=== PATIENT | male | born 1965 | race Hispanic/Latino ===

== ENCOUNTER 2020-12-05 06:38 | Emergency (ER) | payer SELFPAY ==
--- NOTE | ~2020-12-05 | CT_ITS ---
EXAMINATION: CT brain wo con DATE: 12/05/2020 08:43 INDICATION: Head injury. TECHNIQUE: Computed tomography (CT) of the head was performed without intravenous contrast. The mA wa s adjusted according to patient size. Iterative reconstruction technique was employed. The dose-lengt h product was 605.33 mGy-cm. COMPARISON: None FINDINGS: There is no intracranial hemorrhage, acute infarction, or abnormal intracranial mass lesion . There are scattered areas of low attenuation in the cerebral white matter. The ventricles are ponce l in size. There is mild mucosal thickening in the paranasal sinuses. The mastoid air cells are ponce l. There is left periorbital soft tissue swelling. The orbits are normal. IMPRESSION: 1. Mild nonspecific cerebral white matter disease, which likely represents chronic small vessel ische vanessa disease. Reviewed, dictated and finalized at location A. IMPRESSION: 1. 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
[2020-12-05 06:47] VITALS: BP 126/88; PULSE 77; RESP 15; TEMP 36.4; O2SAT 96
--- NOTE | 2020-12-05 07:04 | ECG_ITS ---
Measurements Intervals [place] Rate: 72 P: 52 OR: 165 QRS: 41 QRSD: 89 T: 69 QT: 374 QTc: 410 Interpretive Statements SINUS RHYTHM NORMAL ECG Electronically Signed On 12-05-2020 7:40:05 CDT by Tristen Denney D.O.
--- NOTE | 2020-12-05 08:58 | ED.FALL ---
HPI - Fall General Chief Complaint: Fall Stated Complaint: fall Time Seen by Provider: 12/05/20 08:11 History of Present Illness HPI Narrative: Patient presents after falling at work. Patient reports he slipped on the wet floor. Denies any loss of consciousness reports his whole body hurts. Reports he has a laceration to his left eye. Denies any prodrome prior to the fall such as chest pain lightheadedness or dizziness. Denies any focal numbness or weakness. Denies the use of any blood thinners Review of Systems Review of Systems: CONSTITUTIONAL: Denies fever, chills, or sweats. EYES: Denies visual changes, redness, or discharge. ENT: Denies rhinorrhea, congestion, sore throat, or otalgia. CARDIOVASCULAR: Denies chest pain, palpitations, or edema. RESPIRATORY: Denies cough or dyspnea. GASTROINTESTINAL: Denies abdominal pain, nausea, vomiting, or diarrhea. GENITOURINARY: Denies dysuria or hematuria. SKIN: Denies rash or itching. MUSCULOSKELETAL: Denies back pain, joint pain, or myalgia. NEUROLOGIC: Denies numbness, dizziness, or weakness. PSYCHIATRIC: Denies anxiety or depression. All systems reviewed & are unremarkable except as noted in HPI and below Exam Narrative: GENERAL: Well-appearing, well-nourished, and in no acute distress. HEAD: Superficial abrasion around the left orbit no active bleeding there is associated edema and small ecchymosis EYES: PERRLA and EOMI without pain. ENT: Nares clear, no rhinorrhea or epistaxis. Mucous membranes moist. NECK: Supple. No masses. No JVD CHEST: Clear to auscultation. No respiratory distress. No wheezes rales or rhonchi HEART: Regular rate and rhythm. No murmur heard. Normal peripheral pulses. ABDOMEN: Soft, nontender, nondistended, normal active bowel sounds. EXTREMITIES: Normal range of motion. No edema. SKIN: Warm, dry, no rash. NEURO: No focal deficits. Alert and oriented x3. PSYCH: Normal mood and affect. Course Reevaluation(s) Reevaluation #1: Patient continues to rest comfortably requesting some ointment for his eye. Continues to be without focal neurological deficits Date: 12/05/20 Time: 13:02 Vital Signs Vital signs: Vital Signs Temperature 36.4 C 12/05/20 06:47 Pulse Rate 77 12/05/20 06:47 Respiratory Rate 15 12/05/20 06:47 Blood Pressure 126/88 12/05/20 06:47 Pulse Oximetry 96 12/05/20 06:47 Temperature 36.4 C 12/05/20 06:47 Pulse Rate 77 12/05/20 06:47 Respiratory Rate 15 12/05/20 06:47 Blood Pressure 126/88 12/05/20 06:47 Pulse Oximetry 96 12/05/20 06:47 MDM - Fall MDM Narrative Medical decision making narrative: H&P as above, vss, pt looks clinically well, exam with superficial injury to the left eye no focal neurological deficits, labs notable for elevated alcohol level, img without acute process, additional labs/img considered, symptomatic relief available as needed, on reevaluation pt continues to looks clinically well. Suspect mechanical ground-level fall related to alcohol intoxication, dns intracranial hemorrhage, ACS, PE, electrolyte disturbance. plan to tx/monitor as op w/ pcm f/u findings/plan discussed with pt, pt agree/comfortable with plan, return precautions given Lab Data Result diagrams: 12/05/20 09:00 12/05/20 09:00 Labs: Lab Results 12/05/20 12/05/20 12/05/20 Range/Units 09:00 09:00 09:00 WBC 3.1 L (4.5-10.0) K/mm3 RBC 3.19 L (4.6-6.20) M/mm3 Hgb 11.9 L (14.0-18.0) g/dL Hct 32.8 L (42.0-52.0) % MCV 102.8 H (80-100) fl MCH 37.3 H (26-34) pg MCHC 36.3 H (32-36) g/dl RDW 11.6 (11.5-14.5) % Plt Count 68 L (150-375) k/mm3 MPV 10.0 (7.4-10.4) fl Immature Gran % (Auto) 0.0 (0-0.5) % Neut % (Auto) 40.3 L (45.5-73.1) % Lymph % (Auto) 46.6 H (18.3-44.2) % [place] % (Auto) 7.2 (2.6-8.5) % Eos % (Auto) 4.3 (0-4.4) % Baso % (Auto) 1.6 H (0.2-1.2) % Lymph # (Auto) 1.42 (0.9-3.2) K/mm3 [place] # (Auto)
[2020-12-05 09:14] LABS: Add Urine Microscopic? NO; Appearance Urine Clear (Clear); Bilirubin Urine Negative (Negative); Blood Urine Negative (Negative); Color Urine Straw (Yellow); Glucose Urine UA Negative (Negative); Ketones Urine Negative (Negative); Leukocyte Esterase Ur Negative LEU/UL (Negative); Nitrate Urine Negative (Negative); Protein Urine Negative (Negative); Urobilinogen Urine Negative mg/dL (<2.0)
[2020-12-05 09:15] LABS: Basophils Absolute Auto 0.1 K/mm3 (0.0-0.1); Basophils Percent Auto 1.6 % (0.2-1.2); Eosinophils Absolute Auto 0.1 K/mm3 (0-0.3); Eosinophils Percent Auto 4.3 % (0-4.4); Hematocrit 32.8 % (42.0-52.0); Hemoglobin 11.9 g/dL (14.0-18.0); Immature Platelet Fraction Pct 9.6 % (0.9-11.2); Lymphocytes Absolute Auto 1.42 K/mm3 (0.9-3.2); Lymphocytes Percent Auto 46.6 % (18.3-44.2); Mean Corpuscular HGB Conc 36.3 g/dl (32-36); Mean Corpuscular Hemoglobin 37.3 pg (26-34); Mean Corpuscular Volume 102.8 fl (80-100); Monocytes Absolute Auto 0.2 K/mm3 (0.1-0.6); Monocytes Percent Auto 7.2 % (2.6-8.5); Neutrophils Absolute Auto 1.2 K/mm3 (1.3-6.7); Neutrophils Percent Auto 40.3 % (45.5-73.1); Platelet Count Result 68 k/mm3 (150-375); Red Blood Count 3.19 M/mm3 (4.6-6.20); Red Cell Distribution Width 11.6 % (11.5-14.5); White Blood Count 3.1 K/mm3 (4.5-10.0)
[2020-12-05 09:24] LABS: Alanine Aminotransferase 76 U/L (4-50); Albumin Level 4.6 g/dL (3.5-5.1); Alkaline Phosphatase 137 U/L (38-126); Anion Gap 13 mmol/L (8-16); Aspartate Amino Transferase 244 U/L (17-59); Bilirubin,Total 0.9 mg/dL (0.2-1.3); Blood Urea Nitrogen 3 mg/dL (9-20); Calcium 9.2 mg/dL (8.4-10.2); Carbon Dioxide 30 mmol/L (22-30); Chloride 95 mmol/L (98-107); Estimated Glomerular Filt Rate > 60; Glucose 95 mg/dL (65-110); Magnesium 1.2 mg/dL (1.6-2.3); Potassium 3.9 mmol/L (3.4-5.0); Sodium 138 mmol/L (137-145)
[2020-12-05 09:35] LABS: Amphetamine Screen Urine Negative (Negative); Barbiturate Screen Urine Negative (Negative); Benzodiazepines Screen Urine Negative (Negative); Cannabinoid Screen Urine Negative (Negative); Cocaine Screen Urine Negative (Negative); Methadone Screen Urine Negative (Negative); Opiate Screen Urine Negative (Negative); Phencyclidine Screen Urine Negative (Negative)
[2020-12-05 09:40] LABS: Specific Grav Ur 1.003 (1.001-1.035)
[2020-12-05 09:56] LABS: Ethanol 406 mg/dL (<10)
--- NOTE | 2020-12-05 13:32 | PC.NURSE ---
Pt was able to walk and stand with no difficultly while this RN in room. Pt was able to tell this RN what happened last night and what materials he had brought into this ED. Pt requested to be wheeled to exit to which this RN did. Pt asked how to get back to [place] and this RN informed pt that there was a bus service across the street and pointed in the direction.
== END 2020-12-05 13:32 | disposition home or self-care (01) ==
PROVIDERS: Emergency Provider Emergency Medicine
DX: S09.90XA Unspecified injury of head, initial encounter (principal); F10.10 Alcohol abuse, uncomplicated; Y90.8 Blood alcohol level of 240 mg/100 ml or more; R94.5 Abnormal results of liver function studies; W01.0XXA Fall on same level from slipping, tripping and stumbling without subsequent striking against object, initial encounter
CPT/HCPCS: 36415; 70450; 80053; 80307; 81003; 83735; 85025; 85055; 93005; 99284